=== PATIENT | male | born 2005 | race Caucasian/White ===

== ENCOUNTER 2024-11-22 22:42 | Emergency (ER) | payer OTHER ==
[~2024-11-22] VITALS: Ht 177.8 cm; Wt 113.0 kg
[2024-11-22 22:55] VITALS: TEMP 37.1; O2SAT 99
[2024-11-22] MEDS: SODIUM CHLORIDE 0.9% 1,000 ML IV ONE (23:57)
[2024-11-22] MEDS: ONDANSETRON HCL 4MG/2ML INJ IV STA (23:58)
[2024-11-23 02:41] LABS: CHLORIDE 108 mEq/L (98-107); POTASSIUM 3.7 mEq/L (3.5-5.1); SODIUM 144 mEq/L (136-145)
[2024-11-23 02:42] LABS: CARBON DIOXIDE 24 mEq/L (21-32)
[2024-11-23 02:43] LABS: CALCIUM 8.6 mg/dL (8.7-10.4)
[2024-11-23 02:47] LABS: GLUCOSE 96 mg/dL (70-105); UREA NITROGEN BLOOD 12 mg/dL (9-23)
[2024-11-23 02:48] LABS: ETHANOL BLOOD 236 mg/dL (<10)
[2024-11-23 02:51] LABS: BASOPHILS % 0.3 % (0.0-2.0); EOSINOPHILS % 0.1 % (0.0-5.0); HEMATOCRIT. 45.8 % (42.0-52.0); HEMOGLOBIN. 15.3 g/dL (14.0-18.0); LYMPHOCYTES % 8.6 % (20.0-50.0); MEAN CORPUSCULAR HEMOGLOBIN 29.7 pg (28.0-32.0); MEAN CORPUSCULAR HGB CONC 33.5 g/dL (31.0-37.0); MEAN CORPUSCULAR VOLUME 88.7 fL (80.0-94.0); MEAN PLATELET VOLUME 8.4 fl (7.4-10.4); MONOCYTES % 1.9 % (2.0-8.0); NEUTROPHILS % 89.1 % (40.0-76.0); PLATELET 279 x1000/uL (130-400); RED BLOOD CELL COUNT 5.16 mill/uL (4.7-6.1); RED CELL DISTRIBUTION WIDTH 14.4 % (11.6-14.6)
[2024-11-23 02:53] LABS: DIFFERENTIAL COMMENT 1
[2024-11-23 03:58] VITALS: BP 106/61; PULSE 78; RESP 18; O2SAT 99
== END 2024-11-23 04:00 | disposition home or self-care (01) ==
LOC: EDBD 22:58 → ER 22:58
DX: R41.82 Altered mental status, unspecified (principal); T51.0X1A Toxic effect of ethanol, accidental (unintentional), initial encounter; Y92.89 Other specified places as the place of occurrence of the external cause
CPT/HCPCS: 36415; 70450; 96361; 96374; 99285; 80048; 80320; 85025; J2405; J7030; G0480